=== PATIENT | female | born 1970 | race Caucasian/White ===

== ENCOUNTER 2017-06-29 16:33 | Emergency (ER) | payer BC, OTHER ==
[2017-06-29] MEDS ORDERED: Bacitracin Oint 1 GM U/D Packet TOP ONE (17:31)
--- NOTE | 2017-06-29 17:44 | EDM.PDOC ---
ED HPI GENERAL MEDICAL PROBLEM - General Chief Complaint: Laceration Stated Complaint: R MIDDLE FINGER LACERATION Time Seen by Provider: 06/29/17 17:32 Source of Information: Reports: Patient History Limitations: Reports: No Limitations - History of Present Illness INITIAL COMMENTS - FREE TEXT/NARRATIVE: pt has a 1/4 inch laceration of the rt middle finger. Onset: Today, Other (pt cut it on a piece of glass. ) Duration: Hour(s): Location: Reports: Upper Extremity, Right Associated Symptoms: Reports: No Other Symptoms - Related Data Allergies Allergy/AdvReac Type Severity Reaction Status Date / Time No Known Allergies Allergy Verified 08/26/16 13:07 Home Meds: Home Meds Butalbital/Acetaminophen [Butalbital-Acetaminophn 50-325] 1 tab PO ASDIRECTED PRN 06/29/17 [History] FLUoxetine HCl [Prozac] 40 mg PO DAILY 06/29/17 [History] Past Medical History HEENT History: Reports: Impaired Vision [employer]ER [employer] History: Reports: Social & Family History - Tobacco Use Smoking Status *Q: Light Tobacco Smoker Years of Tobacco use: 25 Packs/Tins Daily: 0.1 - Caffeine Use Caffeine Use: Reports: Coffee, Soda - Recreational Drug Use Recreational Drug Use: No ED ROS GENERAL - Review of Systems Review Of Systems: See Below Constitutional: Reports: No Symptoms HEENT: Reports: No Symptoms Respiratory: Reports: No Symptoms Cardiovascular: Reports: No Symptoms Endocrine: Reports: No Symptoms GI/Abdominal: Reports: No Symptoms : Reports: No Symptoms ED EXAM, SKIN/RASH Exam: See Below Exam Limited By: No Limitations General Appearance: Alert Extremities: Other (pt has a 1/4 inch laceration of the rt middle finger. She has normal motion and sensation. ) Course - Vital Signs Last Recorded V/S: Last Vital Signs Temp 36.6 C 06/29/17 17:00 Pulse 73 06/29/17 17:00 Resp 16 06/29/17 17:00 BP 131/65 06/29/17 17:00 Pulse Ox 98 06/29/17 17:00 - Orders/Labs/Meds Meds: Medications Discontinued Medications Generic Name Dose Route Start Last Admin Trade Name Freq PRN Reason Stop Dose Admin Bacitracin 1 dose 06/29/17 17:31 06/29/17 17:40 Bacitracin Oint 1 Gm TOP 06/29/17 17:32 1 dose ONETIME ONE Administration Lidocaine HCl 5 ml 06/29/17 17:31 06/29/17 17:40 Xylocaine-Mpf 1% INJECT 06/29/17 17:32 5 ml ONETIME ONE Administration - Re-Assessments/Exams Free Text/Narrative Re-Assessment/Exam: 06/29/17 17:34 The area was cleased well and irrigated. It was infiltrated with 1% lidocaine. The wound was closed with 5-0 prolene. It was dressed with bacatracin. Departure - Departure Time of Disposition: 17:35 Disposition: Home, Self-Care 01 Condition: Fair Clinical Impression: Laceration - Discharge Information Instructions: Laceration Care, Adult Referrals: Barrett Ramsey NP [Primary Care Provider] - Forms: ED Department Discharge Care Plan Goals: keep dry, keep coverd , no further ointments, suture removal in 7-8 days.
== END 2017-06-29 18:01 | disposition home or self-care (01) ==
LOC: JP.ED 16:33
DX: S61.212A Laceration without foreign body of right middle finger without damage to nail, initial encounter (principal); F17.210 Nicotine dependence, cigarettes, uncomplicated; Z79.899 Other long term (current) drug therapy; W25.XXXA Contact with sharp glass, initial encounter
CPT/HCPCS: 12001; 99283-25